=== PATIENT | male | born 2000 | race Caucasian/White ===

== ENCOUNTER 2023-02-12 07:36 | Outpatient (OUT) | payer BC, OTHER, SELFPAY ==
--- NOTE | 2023-02-12 07:49 | XR_ITS ---
The [address] [address] Patient Name: LM GUEVARA MRN: [id number] date: 2000 Sex: M Assigned Patient Location: RAD Current Patient Location: RAD Accession/Order Number: [id number] Exam Date: 02/12/2023 08:00 Report Date: 02/12/2023 08:34 At the request of: SYDNEY OVIEDO Procedure: XR knee RT 4V EXAM: XR knee RT 4V HISTORY: Acute Pain Of Right Knee M25.561 COMPARISON: There is no appropriate prior study for comparison. The alignment is anatomical. There is no acute fracture or dislocation. The interarticular joint spaces are preserved. No significant soft tissue abnormality is noted. There is increased fluid within the suprapatellar bursa. XR/XR knee RT 4V IMPRESSION: Increased fluid within the suprapatellar bursa. Otherwise, unremarkable x-rays of the right knee. Electronically authenticated by: FABIO YANG Date: 02/12/2023 08:34
== END 2023-02-12 07:37 | disposition home or self-care (01) ==
LOC: RAD 07:43
PROVIDERS: Visit Provider Orthopaedic Surgery
DX: M25.561 Pain in right knee (principal)
CPT/HCPCS: 73564